=== PATIENT | female | born 1990 | race Caucasian/White ===

== ENCOUNTER 2017-06-08 14:12 | Emergency (ER) | payer OTHER, MEDICAID ==
[~2017-06-08] VITALS: Ht 165.1 cm; Wt 136.1 kg
[~2017-06-08 14:12] MED LIST: ACETAMINOPHEN-1 EAC1 PO; AMOXICILLIN 50500 MG PO; BACTRIM DS TAB1 EACH PO; BACTROBAN22 GM TP; BUPROPION; CIPRO500 MG PO; CLEOCIN HCL150 MG PO; DIPHENHIST50 MG PO; DOXYCYCLINE 10100 MG PO; FLEXERIL PO; HYDROCODONE-AP1 EAC6 PO; IBUPROFEN 200200 M1 PO; IBUPROFEN 400400 M2 PO; IBUPROFEN 800800 M1 PO; MEDROLDOSEPACK PO; NAPROSYN500 MG; NOHOMEMEDICATIONS; NORCO 5-325 TA1 EACH PO; ONDANSETRON HCL4 M2 PO; PENICILLIN VK250 MG PO; PREDNISONE 20 M20 M1 PO; ROBAXIN 750 MG750 M1 PO; TETRACYCLINE; TRAMADOL 50 MG50 MG PO; TRILEPTAL600 MG PO; ULTRAM 50MG TAB50 MG PO; VISTARIL 25 MG25 M1 PO; ZOLOFT; ZPAK PO
[2017-06-08 15:02] LABS: INFLUENZA A ANTIGEN None Detected (None Detect); INFLUENZA B ANTIGEN None Detected (None Detect)
[2017-06-08] MEDS ORDERED: VENTOLIN HFA 1818 GM INH (15:05)
[2017-06-08 15:37] VITALS: BP 125/85
== END 2017-06-08 15:38 | disposition home or self-care (01) ==
LOC: M.ERS 14:12
PROVIDERS: Emergency Medicine
DX: B34.9 Viral infection, unspecified (principal); I10 Essential (primary) hypertension; F17.210 Nicotine dependence, cigarettes, uncomplicated; F10.99 Alcohol use, unspecified with unspecified alcohol-induced disorder; Z90.49 Acquired absence of other specified parts of digestive tract; Z88.2 Allergy status to sulfonamides; Z88.1 Allergy status to other antibiotic agents

== ENCOUNTER 2018-07-17 13:49 | Emergency (ER) | payer OTHER, MEDICAID ==
[~2018-07-17] VITALS: Ht 165.1 cm; Wt 158.8 kg
[~2018-07-17 13:49] MED LIST changes: +VENTOLIN HFA 1818 GM INH
[2018-07-17 14:51] LABS: INFLUENZA A ANTIGEN None Detected (None Detect); INFLUENZA B ANTIGEN None Detected (None Detect)
[2018-07-17] MEDS ORDERED: ZOFRAN ODT4 MG PO (15:02)
[2018-07-17 15:17] VITALS: BP 156/101
== END 2018-07-17 15:18 | disposition home or self-care (01) ==
LOC: M.ERS 13:49
PROVIDERS: Emergency Medicine
DX: J02.0 Streptococcal pharyngitis (principal); F17.210 Nicotine dependence, cigarettes, uncomplicated; I10 Essential (primary) hypertension; Z88.2 Allergy status to sulfonamides; Z88.8 Allergy status to other drugs, medicaments and biological substances; Z90.49 Acquired absence of other specified parts of digestive tract; Z98.890 Other specified postprocedural states

== ENCOUNTER 2018-10-19 10:45 | Emergency (ER) | payer OTHER, MEDICAID ==
[~2018-10-19] VITALS: Ht 167.6 cm; Wt 158.8 kg
[~2018-10-19 10:45] MED LIST changes: +ZOFRAN ODT4 MG PO
[2018-10-19 11:33] LABS: ABSOLUTE BASOPHILS 0.1 thou/uL (0.0-0.2); ABSOLUTE EOSINOPHILS 0.2 thou/uL (0.0-0.7); ABSOLUTE LYMPHOCYTES 3.3 thou/uL (0.8-5.3); ABSOLUTE MONOCYTES 1.1 thou/uL (0.0-1.2); ABSOLUTE NEUTROPHILS 13.1 thou/uL (1.6-8.1); BASOPHILS 0.8 %; EOSINOPHILS 1.3 %; HEMATOCRIT 45.4 % (37.0-47.0); HEMOGLOBIN 15.1 gm/dL (12.0-15.0); LYMPHOCYTES 18.4 %; MCH 27.9 pg (26.0-34.0); MCHC 33.3 g/dL (28.0-37.0); MCV 83.8 fL (80.0-100.0); MPV 7.8 fl. (7.2-11.1); NUCLEATED RBCS 0 /100WBC; PLATELET COUNT* 441 thou/uL (150-400); POLYS 73.5 %; RBC 5.42 mil/uL (4.20-5.00); RDW-CV 14.3 % (10.5-14.5); WBC 17.8 thou/uL (4.0-11.0)
[2018-10-19 11:45] LABS: ANION GAP 11 mmol/L (7-16); BUN 13 mg/dL (7-18); CALCIUM 9.7 mg/dL (8.5-10.1); CHLORIDE 100 mmol/L (98-107); CO2 28 mmol/L (21-32); GLUCOSE 94 mg/dL (70-99); SODIUM 139 mmol/L (136-145)
[2018-10-19 11:55] LABS: ALBUMIN 3.8 g/dL (3.4-5.0); ALKALINE PHOSPHATASE 94 U/L (46-116); LIPASE 134 U/L (73-393); SGOT 15 U/L (15-37); SGPT 32 U/L (30-65); TOTAL BILIRUBIN 0.2 mg/dL (<0.1-1.0); TOTAL PROTEIN 8.6 g/dL (6.4-8.2); TROPONIN-I LEVEL <0.06 ng/mL (<0.06)
[2018-10-19 12:43] LABS: URINE BILIRUBIN NEGATIVE (Negative); URINE BLOOD 1+ (Negative); URINE CLARITY CLEAR; URINE COLOR YELLOW; URINE GLUCOSE-RANDOM NEGATIVE (Negative); URINE KETONES NEGATIVE (Negative); URINE LEUKOCYTES-REFLEX NEGATIVE (Negative); URINE NITRITE-REFLEX POSITIVE (Negative); URINE PROTEIN NEGATIVE (Negative); URINE SPECIFIC GRAVITY 1.025 (1.005-1.030); URINE UROBILINOGEN 0.2 E.U./dl (0.2-1.0)
[2018-10-19 12:48] LABS: CASTS None Seen /LPF (None Seen); CRYSTALS None Seen /LPF (None Seen); MUCUS 0-3 Light strn/LPF (None Seen); SQUAMOUS 0-3 Few /LPF (0-3); URINE RBC 0-2 Rare /HPF (0-2); URINE WBC-REFLEX 6-15 Few /HPF (0-5)
[2018-10-19] MEDS ORDERED: KEFLEX500 M1 PO (12:51)
[2018-10-19] MEDS ORDERED: ACETAMINOPHEN-1 EAC1 PO (12:51)
[2018-10-19 13:05] VITALS: BP 140/88
== END 2018-10-19 13:06 | disposition home or self-care (01) ==
LOC: M.ERS 10:45
PROVIDERS: Physician Assistant
DX: N39.0 Urinary tract infection, site not specified (principal); M54.5 Low back pain; M89.9 Disorder of bone, unspecified; I10 Essential (primary) hypertension; Z90.49 Acquired absence of other specified parts of digestive tract; F17.210 Nicotine dependence, cigarettes, uncomplicated; Z88.2 Allergy status to sulfonamides; Z88.8 Allergy status to other drugs, medicaments and biological substances

== ENCOUNTER 2019-04-02 15:19 | Emergency (ER) | payer OTHER ==
[~2019-04-02] VITALS: Ht 170.2 cm; Wt 113.4 kg
[~2019-04-02 15:19] MED LIST changes: +KEFLEX500 M1 PO
[2019-04-02] MEDS ORDERED: MINOCYCLINE HC100 M2 PO (15:48)
[2019-04-02] MEDS ORDERED: NORCO 5-325 TA1 EAC1 PO (15:48)
[2019-04-02 15:58] VITALS: BP 175/103
== END 2019-04-02 15:59 | disposition home or self-care (01) ==
LOC: M.ERS 15:19
DX: L03.031 Cellulitis of right toe (principal); L60.0 Ingrowing nail; I10 Essential (primary) hypertension; Z90.89 Acquired absence of other organs; Z98.890 Other specified postprocedural states; Z90.49 Acquired absence of other specified parts of digestive tract; F17.210 Nicotine dependence, cigarettes, uncomplicated; Z88.2 Allergy status to sulfonamides; Z88.8 Allergy status to other drugs, medicaments and biological substances

== ENCOUNTER 2019-06-14 09:16 | Emergency (ER) | payer OTHER ==
[~2019-06-14] VITALS: Ht 167.6 cm; Wt 136.1 kg
[~2019-06-14 09:16] MED LIST changes: +MINOCYCLINE HC100 M2 PO; +NORCO 5-325 TA1 EAC1 PO
[2019-06-14] MEDS ORDERED: ZOFRAN ODT4 MG SUBLING (09:58)
[2019-06-14] MEDS ORDERED: AMOXICILLIN 50500 MG PO (09:58)
[2019-06-14] MEDS ORDERED: PREDNISONE 20 M20 M1 PO (09:58)
[2019-06-14 10:27] VITALS: BP 168/78
== END 2019-06-14 10:28 | disposition home or self-care (01) ==
LOC: M.ERS 09:16
DX: J32.9 Chronic sinusitis, unspecified (principal); I10 Essential (primary) hypertension; F17.210 Nicotine dependence, cigarettes, uncomplicated; Z98.890 Other specified postprocedural states; Z90.49 Acquired absence of other specified parts of digestive tract; Z90.89 Acquired absence of other organs; Z88.2 Allergy status to sulfonamides; Z88.8 Allergy status to other drugs, medicaments and biological substances

== ENCOUNTER 2020-09-07 11:54 | Emergency (ER) | payer MEDICAID ==
[~2020-09-07] VITALS: Ht 167.6 cm; Wt 149.7 kg
[~2020-09-07 11:54] MED LIST changes: +ZOFRAN ODT4 MG SUBLING
[2020-09-07] MEDS ORDERED: DOXYCYCLINE 10100 MG PO (12:22)
[2020-09-07] MEDS ORDERED: NORCO5 PO ×2 (12:22→12:23)
[2020-09-07] MEDS ORDERED: IBUPROFEN 800800 M1 PO (12:22)
[2020-09-07 13:05] VITALS: BP 188/88
== END 2020-09-07 13:06 | disposition home or self-care (01) ==
LOC: M.ERS 11:54
DX: L02.411 Cutaneous abscess of right axilla (principal); I10 Essential (primary) hypertension; F17.210 Nicotine dependence, cigarettes, uncomplicated; Z90.49 Acquired absence of other specified parts of digestive tract; Z98.890 Other specified postprocedural states; Z88.2 Allergy status to sulfonamides; Z88.1 Allergy status to other antibiotic agents

== ENCOUNTER 2020-11-17 10:42 | Emergency (ER) | payer MEDICAID ==
[~2020-11-17] VITALS: Ht 167.6 cm; Wt 149.7 kg
[~2020-11-17 10:42] MED LIST changes: +NORCO5 PO
[2020-11-17] MEDS ORDERED: HYDROCODON-ACE1 EAC7 PO (11:35)
[2020-11-17] MEDS ORDERED: PREDNISONE 20 M20 M1 PO (11:35)
[2020-11-17 11:46] VITALS: BP 170/82
== END 2020-11-17 11:47 | disposition home or self-care (01) ==
LOC: M.ERS 10:42
DX: G56.03 Carpal tunnel syndrome, bilateral upper limbs (principal); I10 Essential (primary) hypertension; F17.210 Nicotine dependence, cigarettes, uncomplicated; Z88.1 Allergy status to other antibiotic agents; Z88.2 Allergy status to sulfonamides; Z98.890 Other specified postprocedural states; Z90.49 Acquired absence of other specified parts of digestive tract

== ENCOUNTER 2021-01-07 07:49 | Emergency (ER) | payer OTHER ==
[~2021-01-07] VITALS: Ht 165.1 cm; Wt 158.8 kg
[~2021-01-07 07:49] MED LIST changes: +HYDROCODON-ACE1 EAC7 PO
[2021-01-07 08:14] LABS: URINE BILIRUBIN NEGATIVE (Negative); URINE BLOOD 1+ (Negative); URINE CLARITY CLEAR; URINE COLOR YELLOW; URINE GLUCOSE-RANDOM NEGATIVE (Negative); URINE KETONES NEGATIVE (Negative); URINE LEUKOCYTES NEGATIVE (Negative); URINE NITRITE NEGATIVE (Negative); URINE PROTEIN NEGATIVE (Negative); URINE SPECIFIC GRAVITY 1.025 (1.005-1.030); URINE UROBILINOGEN 0.2 E.U./dl (0.2-1.0)
[2021-01-07] MEDS ORDERED: LIPITOR 20 MG T20 M1 PO (08:15)
[2021-01-07 08:26] LABS: SQUAMOUS 4-10 Moderate /LPF (0-3); URINE WBC 0-5 Rare /HPF (0-5)
[2021-01-07 08:27] LABS: BACTERIA 1-9 Few /HPF (None Seen); CASTS None Seen /LPF (None Seen); CRYSTALS None Seen /LPF (None Seen); MUCUS 0-3 Light strn/LPF (None Seen); URINE RBC 3-10 Few /HPF (0-2)
[2021-01-07 08:36] LABS: ABSOLUTE BASOPHILS 0.1 thou/uL (0.0-0.2); ABSOLUTE EOSINOPHILS 0.3 thou/uL (0.0-0.7); ABSOLUTE LYMPHOCYTES 2.7 thou/uL (0.8-5.3); ABSOLUTE MONOCYTES 0.8 thou/uL (0.0-1.2); ABSOLUTE NEUTROPHILS 9.5 thou/uL (1.6-8.1); BASOPHILS 0.9 %; HEMATOCRIT 42.1 % (37.0-47.0); HEMOGLOBIN 14.1 gm/dL (12.0-15.0); LYMPHOCYTES 20.2 %; MCH 28.5 pg (26.0-34.0); MCHC 33.5 g/dL (28.0-37.0); MONOCYTES 6.3 %; MPV 7.7 fl. (7.2-11.1); NUCLEATED RBCS 0 /100WBC; PLATELET COUNT* 319 thou/uL (150-400); POLYS 70.6 %; RBC 4.95 mil/uL (4.20-5.00); RDW-CV 14.4 % (10.5-14.5); WBC 13.4 thou/uL (4.0-11.0)
[2021-01-07 08:45] LABS: CALCIUM 8.5 mg/dL (8.5-10.1); CREATININE 0.9 mg/dL (0.6-1.3)
[2021-01-07 08:50] LABS: ALBUMIN 3.6 g/dL (3.4-5.0); POTASSIUM 4.8 mmol/L (3.5-5.1); TOTAL BILIRUBIN 0.3 mg/dL (<0.1-1.0)
[2021-01-07 10:55] VITALS: BP 123/56
== END 2021-01-07 10:56 | disposition home or self-care (01) ==
LOC: M.ERS 07:49
PROVIDERS: Emergency Medicine
DX: R10.31 Right lower quadrant pain (principal); I10 Essential (primary) hypertension; F17.210 Nicotine dependence, cigarettes, uncomplicated; Z90.49 Acquired absence of other specified parts of digestive tract; Z90.89 Acquired absence of other organs; Z79.899 Other long term (current) drug therapy; Z88.2 Allergy status to sulfonamides

== ENCOUNTER 2021-04-08 08:54 | Emergency (ER) | payer OTHER, MEDICAID ==
[~2021-04-08] VITALS: Ht 162.6 cm; Wt 158.8 kg
[~2021-04-08 08:54] MED LIST changes: +LIPITOR 20 MG T20 M1 PO
[2021-04-08 09:52] VITALS: BP 145/75
[2021-04-08 10:30] LABS: INFLUENZA A ANTIGEN Negative (Negative); INFLUENZA B ANTIGEN Negative (Negative)
== END 2021-04-08 11:07 | disposition home or self-care (01) ==
LOC: M.ERS 08:54
PROVIDERS: Emergency Medicine
DX: U07.1 COVID-19 (principal); I10 Essential (primary) hypertension; F17.210 Nicotine dependence, cigarettes, uncomplicated; Z98.890 Other specified postprocedural states; Z88.2 Allergy status to sulfonamides; Z90.49 Acquired absence of other specified parts of digestive tract

== ENCOUNTER 2021-05-30 16:19 | Emergency (ER) | payer OTHER, MEDICAID ==
[~2021-05-30] VITALS: Ht 167.6 cm; Wt 160.1 kg
[2021-05-30] MEDS ORDERED: APAP W/CODEINE1 TA2 PO (17:31)
[2021-05-30 17:45] VITALS: BP 181/84
== END 2021-05-30 17:45 | disposition home or self-care (01) ==
LOC: M.ERS 16:19
DX: M25.562 Pain in left knee (principal); I10 Essential (primary) hypertension; F17.210 Nicotine dependence, cigarettes, uncomplicated; Z88.2 Allergy status to sulfonamides; Z90.49 Acquired absence of other specified parts of digestive tract